=== PATIENT | male | born 1970 | race African-American/Black ===

== ENCOUNTER 2020-08-19 04:41 | Day surgery (SDC) | payer OTHER ==
[2020-08-17 12:56] VITALS: BMI 23.7
[2020-08-19 07:26] LABS: URINE APPEARANCE CLEAR; URINE COLOR YELLOW
[2020-08-19 07:27] LABS: EPI CELLS 2.8 /uL (0-25.1); HYALINE CASTS 0.38 /uL (0-3.1); PH,URINE 5.5 (5.0-8.0); URINE BACTERIA 33.4 /uL (0-1359); URINE BILIRUBIN NEGATIVE (NEGATIVE); URINE CRYSTALS NON SEEN /hpf; URINE KETONE NEGATIVE (NEGATIVE); URINE LEUK ESTERASE NEGATIVE (NEGATIVE); URINE NITRITE NEGATIVE (NEGATIVE); URINE PROTEIN NEGATIVE (NEGATIVE); URINE RBC 26.4 /uL (0-23.9); URINE WBC 3.8 /uL (0-25.8)
[2020-08-19] MEDS ORDERED: LACTATED RINGERS SOLUTION 1,000 ML/1,000 ML INFUS.BAG IV SCH (07:45)
[2020-08-19] MEDS ORDERED: INSULIN REGULAR HUMAN 100 UNITS/ML *VIAL IVPUSH ONE (08:00)
[2020-08-19] MEDS ORDERED: DEXAMETHASONE SOD PHOSPHATE/PF 10 MG/ML SDV ONE (08:01)
[2020-08-19] MEDS ORDERED: ROPIVACAINE HCL 0.5% 30ML VIAL ONE (08:02)
[2020-08-19] MEDS ORDERED: MIDAZOLAM HCL 2 MG/2 ML SINGLE DOSE VIAL ONE ×2 (08:38)
[2020-08-19] MEDS ORDERED: PROPOFOL 20 ML ONE ×2 (09:10→09:31)
[2020-08-19] MEDS ORDERED: ceFAZolin SODIUM 1 GM VIAL IVPB ONE ×3 (09:30→12:25)
[2020-08-19] MEDS ORDERED: ceFAZolin SODIUM 1 GM VIAL ONE ×2 (09:36→12:20)
[2020-08-19] MEDS ORDERED: ADENOSINE 6 MG/2 ML VIAL IVPUSH ONE (10:30)
[2020-08-19] MEDS ORDERED: CEFAZOLIN 1 GM in DEXTROSE 5%-WATER - 50 ML IVPB ONE (10:33)
[2020-08-19] MEDS ORDERED: oxyCODONE HCL 5 MG TABLET PO PRN (11:16)
[2020-08-19] MEDS ORDERED: ONDANSETRON 4 MG/2 ML VIAL IVPUSH PRN (11:16)
[2020-08-19] MEDS ORDERED: LACTATED RINGERS SOLUTION 1,000 ML IV SCH (11:30)
[2020-08-19 20:02] VITALS: BP 142/82; PULSE 82; TEMP 97.8
== END 2020-08-19 13:20 | disposition home or self-care (01) ==
LOC: JASU-SURG 04:41
PROVIDERS: ATTEND Orthopaedic Surgery
PROC: 0LQ14ZZ Repair Right Shoulder Tendon, Percutaneous Endoscopic Approach (ICD-10-PCS; 2020-08-19)
PROC: 0RNJ4ZZ Release Right Shoulder Joint, Percutaneous Endoscopic Approach (ICD-10-PCS; principal; 2020-08-19 08:45)
DX: M75.101 Unspecified rotator cuff tear or rupture of right shoulder, not specified as traumatic (principal)
CPT/HCPCS: 81003; 82962; 88304-TC; 94760